=== PATIENT | male | born 1940 | race Caucasian/White ===

== ENCOUNTER → 2016-12-27 | Outpatient (CLI) | payer MEDICARE ==
[~2016-12-27] MED LIST: AMLO1CAP10 PO; GLIM4TAB2 PO; LINA5TAB PO; LORA1TAB PO; METF10002 PO; ROSU10TA PO; TAMS0.4C2 PO; THYROXINE PO
== END | disposition home or self-care (01) ==
LOC: STAR 14:22
PROVIDERS: ATTEND Neurological Surgery
DX: Z01.818 Encounter for other preprocedural examination (principal); R94.31 Abnormal electrocardiogram [ECG] [EKG]; M48.06 Spinal stenosis, lumbar region; R79.1 Abnormal coagulation profile
CPT/HCPCS: 36415; 71020; 85610; 85730; 93005

== ENCOUNTER → 2017-04-02 | Outpatient (CLI) | payer MEDICARE ==
[~2017-04-02] MED LIST changes: +ARIP5TAB13 PO; +HYDR-3307 PO; +LATA2.5D3 EACHEYE; +LEVO150T5 PO; +OXYC-306 PO; +OXYC1TAB7 PO; +TIZA2TAB PO; +TRINTELLIX PO
== END | disposition home or self-care (01) ==
LOC: CVU 14:12
PROVIDERS: ATTEND Internal Medicine Cardiovascular Disease
DX: I34.0 Nonrheumatic mitral (valve) insufficiency (principal); I10 Essential (primary) hypertension; E11.9 Type 2 diabetes mellitus without complications
CPT/HCPCS: 93306

== ENCOUNTER → 2018-01-22 | Outpatient (CLI) | payer MEDICARE ==
[~2018-01-22] MED LIST changes: +CARV6.2512 PO; +CETI10TA18 PO; +FLUT16SP NAS; +LEVO75TA PO; +LISI1TAB3 PO; +LOSA25TA2 PO; +OMEG1CAP6 PO; +OMNIPAQUE 350 MG/ML, 100ML BOTTLE ONE; +SODI44SP NAS
[2018-01-22 15:59] LABS: BASOPHILS # (AUTO) 0.02 x10^3/uL (0-0.1); BASOPHILS % (AUTO) 0 % (0-1); EOSINOPHILS # (AUTO) 0.13 x10^3/uL (0-0.4); EOSINOPHILS % (AUTO) 1 % (1-7); LYMPHOCYTES # (AUTO) 2.72 x10^3/uL (1-3.4); LYMPHOCYTES % (AUTO) 29 % (22-44); MD NO; MEAN CORPUSCULAR HEMOGLOBIN 32.9 pg (27.5-34.5); MEAN CORPUSCULAR HGB CONC 33.7 g/dL (33.2-36.2); MEAN CORPUSCULAR VOLUME 97.4 fL (81-97); MEAN PLATELET VOLUME 6.3 fL (7.4-10.4); MONOCYTES # (AUTO) 0.66 x10^3/uL (0.2-0.8); MONOCYTES % (AUTO) 7 % (2-9); NEUTROPHILS # (AUTO) 5.82 x10^3/uL (1.8-6.8); NEUTROPHILS % (AUTO) 62 % (42-75); PLATELET COUNT 269 x10^3/uL (130-400); RED BLOOD COUNT 4.69 x10^6/uL (4.38-5.82); RED CELL DISTRIBUTION WIDTH 13.8 % (9.4-14.8)
[2018-01-22 16:00] LABS: HCT (SEDRATE) 45.5 % (39.2-51.8)
[2018-01-22 16:13] LABS: ALANINE AMINOTRANSFERASE 20 U/L (12-78); ALBUMIN 3.8 g/dL (3.4-5.0); ANION GAP 7 mmol/L (5-15); C-REACTIVE PROTEIN, QUANT 0.06 mg/dL (0.02-0.49); CALCIUM 8.7 mg/dL (8.5-10.1); CHLORIDE 102 mmol/L (98-107); CREATININE 0.92 mg/dL (0.7-1.3)
[2018-01-22 16:24] LABS: ALKALINE PHOSPHATASE 54 U/L (45-117); BILIRUBIN,TOTAL 0.5 mg/dL (0.2-1.0); TOTAL PROTEIN 7.4 g/dL (6.4-8.2)
== END | disposition home or self-care (01) ==
LOC: RAD 13:11
PROVIDERS: ATTEND Family Medicine
DX: K57.32 Diverticulitis of large intestine without perforation or abscess without bleeding (principal); K57.30 Diverticulosis of large intestine without perforation or abscess without bleeding; K86.89 Other specified diseases of pancreas; R63.4 Abnormal weight loss; N40.0 Benign prostatic hyperplasia without lower urinary tract symptoms; Z90.49 Acquired absence of other specified parts of digestive tract
CPT/HCPCS: 36415; 71260; 74177; 80053; 82150; 83690; 84443; 85025; 85651; 86140; Q9967

== ENCOUNTER 2018-09-23 16:02 | Observation (INO) | payer MEDICARE ==
[~2018-09-23] VITALS: Ht 182.9 cm; Wt 101.7 kg
[~2018-09-23 16:02] MED LIST changes: -OMNIPAQUE 350 MG/ML, 100ML BOTTLE ONE; -ROSU10TA PO; +ROSU10TA2 PO
[2018-09-23] MEDS ORDERED: CEFTRIAXONE PMX 1GM/50ML 50 ML IV ONE (16:30)
[2018-09-23] MEDS ORDERED: AZITHROMYCIN 500 MG in SODIUM CHLORIDE 0.9% 250 ML IV ONE (16:30)
[2018-09-23 16:34] LABS: BASOPHILS # (AUTO) 0.04 x10^3/uL (0-0.1); BASOPHILS % (AUTO) 1 % (0-1); EOSINOPHILS # (AUTO) 0.25 x10^3/uL (0-0.4); EOSINOPHILS % (AUTO) 3 % (1-7); LYMPHOCYTES # (AUTO) 1.99 x10^3/uL (1-3.4); LYMPHOCYTES % (AUTO) 27 % (22-44); MD NO; MEAN CORPUSCULAR HEMOGLOBIN 31.8 pg (27.5-34.5); MEAN CORPUSCULAR VOLUME 96.3 fL (81-97); MEAN PLATELET VOLUME 6.1 fL (7.4-10.4); MONOCYTES % (AUTO) 8 % (2-9); NEUTROPHILS # (AUTO) 4.58 x10^3/uL (1.8-6.8); NEUTROPHILS % (AUTO) 61 % (42-75); PLATELET COUNT 196 x10^3/uL (130-400); RED BLOOD COUNT 4.94 x10^6/uL (4.38-5.82); RED CELL DISTRIBUTION WIDTH 13.4 % (9.4-14.8)
--- NOTE | 2018-09-23 16:39 | NUR ---
FAMILY TO THE BS PT REMAINS LETHARGIC
[2018-09-23 16:42] LABS: ALANINE AMINOTRANSFERASE 13 U/L (12-78); ALBUMIN 3.5 g/dL (3.4-5.0); ANION GAP 5 mmol/L (5-15); CALCIUM 8.7 mg/dL (8.5-10.1); CHLORIDE 103 mmol/L (98-107); CREATININE 1.01 mg/dL (0.7-1.3); INTERNATIONAL NORMALIZED RATIO 1.05 (0.93-1.1)
[2018-09-23 16:47] LABS: ALKALINE PHOSPHATASE 54 U/L (45-117); BILIRUBIN,TOTAL 0.5 mg/dL (0.2-1.0); TROPONIN I < 0.015 ng/mL (0.000-0.045)
--- NOTE | 2018-09-23 17:04 | NUR ---
PT GIVEN URINAL ATTEMPTING UA COLLECTION
[2018-09-23 17:05] LABS: FREE T4 (FREE THYROXINE) 0.96 ng/dL (0.76-1.46)
[2018-09-23] MEDS ORDERED: DEXTROSE 50%, 50ML SYRINGE IVPush PRN (18:00)
[2018-09-23] MEDS ORDERED: ONDANSETRON ODT 4 MG PO PRN (18:00)
[2018-09-23] MEDS ORDERED: GLUCAGON 1 MG IM PRN (18:00)
[2018-09-23] MEDS ORDERED: DEXTROSE 4 GM TAB.CHEW PO PRN (18:00)
[2018-09-23] MEDS ORDERED: hydrALAzine 20 MG/ML, 1ML IVPush PRN (18:00)
[2018-09-23] MEDS ORDERED: ENOXAPARIN 40 MG/0.4 ML ONE (18:11)
[2018-09-23] MEDS ORDERED: CEFTRIAXONE PMX 1GM/50ML 50 ML ONE (18:11)
[2018-09-23] MEDS: ENOXAPARIN 40 MG/0.4 ML SQ SCH (18:21)
--- NOTE | 2018-09-23 18:34 | NUR ---
PT TO CT AT THIS TIME
--- NOTE | 2018-09-23 19:18 | NUR ---
PT RESTING IN BED WITH SIDE RAILS UP. PT ASKED FOR MILKSHAKE, WILL PROVIDE FOOD TRAY. PT IS DROWSY, CALL LIGHT AND URINAL IN PLACE.
--- NOTE | 2018-09-23 19:27 | NUR ---
report to dennis pierre
--- NOTE | 2018-09-23 19:36 | NUR ---
PT ON MONITOR, PT TO GO TO 403-1. IV ROCEPHIN FINISHED, ALERTED RN SALBADOR NEXT IV ANTIVBXTS DUE. ASKED HER TO GET TRAY FOR FOOD, PT LOOKS TO HAVE EATEN ALREADY ALTHOUGH HE IS NOT SAYING HE DID. PT BELONGINGS BAGGED AND WALLET IN BAG. EXPLAINED NOT RESPONSIBLE FOR LOST ITEMS.
[2018-09-23] MEDS: INSULIN LISPRO 100 UNITS/ML, PEN SQ-INSULIN SCH ×2 (20:00→21:00)
[2018-09-23] MEDS: ATORVASTATIN 40 MG TABLET PO SCH (20:52)
[2018-09-23] MEDS: SODIUM CHLORIDE FLUSH 10ML SYR IVF SCH (20:52)
[2018-09-23 21:00] VITALS: BP 136/84
[2018-09-23 23:13] LABS: MICROSCOPIC NOT IND
[2018-09-23 23:19] LABS: CULTURE INDICATED? NO
[2018-09-23 23:32] LABS: AMPHETAMINE SCREEN, URINE Negative (Negative); BARBITURATE SCREEN, URINE Negative (Negative); BENZODIAZEPINE SCREEN, URINE Positive (Negative); CANNABINOID SCREEN, URINE Negative (Negative); COCAINE SCREEN, URINE Negative (Negative); METHADONE SCREEN, URINE Negative (Negative); OPIATE SCREEN, URINE Positive (Negative)
[2018-09-24 01:23] VITALS: BP 112/72
[2018-09-24] MEDS ORDERED: LEVOTHYROXINE 112 MCG TABLET PO SCH (06:00)
[2018-09-24 06:38] LABS: BASOPHILS # (AUTO) 0.03 x10^3/uL (0-0.1); BASOPHILS % (AUTO) 0 % (0-1); EOSINOPHILS # (AUTO) 0.22 x10^3/uL (0-0.4); EOSINOPHILS % (AUTO) 4 % (1-7); LYMPHOCYTES # (AUTO) 1.67 x10^3/uL (1-3.4); LYMPHOCYTES % (AUTO) 27 % (22-44); MD NO; MEAN CORPUSCULAR HEMOGLOBIN 31.8 pg (27.5-34.5); MEAN CORPUSCULAR HGB CONC 33.6 g/dL (33.2-36.2); MEAN CORPUSCULAR VOLUME 94.8 fL (81-97); MEAN PLATELET VOLUME 6.6 fL (7.4-10.4); MONOCYTES # (AUTO) 0.46 x10^3/uL (0.2-0.8); MONOCYTES % (AUTO) 7 % (2-9); NEUTROPHILS % (AUTO) 62 % (42-75); PLATELET COUNT 175 x10^3/uL (130-400); RED BLOOD COUNT 4.77 x10^6/uL (4.38-5.82); RED CELL DISTRIBUTION WIDTH 13.5 % (9.4-14.8)
[2018-09-24 06:43] LABS: ANION GAP 6 mmol/L (5-15); CALCIUM 8.5 mg/dL (8.5-10.1); CHLORIDE 105 mmol/L (98-107)
[2018-09-24] MEDS: INSULIN LISPRO 100 UNITS/ML, PEN SQ-INSULIN SCH ×4 (07:00→21:49)
[2018-09-24 07:51] VITALS: BP 122/65
[2018-09-24] MEDS: SODIUM CHLORIDE FLUSH 10ML SYR IVF SCH ×2 (09:00→21:12)
[2018-09-24] MEDS: LOSARTAN 25MG TABLET PO SCH (09:15)
[2018-09-24] MEDS: metFORMIN XR 500 MG TAB.ER.24H PO SCH (09:15)
[2018-09-24] MEDS: TAMSULOSIN 0.4 MG CAP.ER.24H PO SCH (09:15)
[2018-09-24] MEDS: CEFTRIAXONE PMX 1GM/50ML 50 ML IV SCH (10:34)
[2018-09-24] MEDS: AZITHROMYCIN 500 MG in SODIUM CHLORIDE 0.9% 250 ML IV SCH (11:16)
[2018-09-24 12:50] VITALS: BP 115/66
[2018-09-24] MEDS: LIDODERM 5% PATCH TD SCH (15:34)
[2018-09-24] MEDS: IBUPROFEN 600 MG TABLET PO PRN (15:34)
[2018-09-24 16:40] VITALS: BP 140/79
[2018-09-24] MEDS: ENOXAPARIN 40 MG/0.4 ML SQ SCH (16:45)
[2018-09-24 18:59] VITALS: BP 142/78
[2018-09-24] MEDS: ATORVASTATIN 40 MG TABLET PO SCH (21:10)
[2018-09-24] MEDS: ACETAMINOPHEN 325 MG TABLET PO PRN (21:10)
[2018-09-25 02:11] VITALS: BP 146/88
[2018-09-25] MEDS: LIDODERM REMOVE PATCH NOTE XX SCH (02:40)
[2018-09-25] MEDS: LEVOTHYROXINE 150 MCG TABLET PO SCH (05:36)
[2018-09-25] MEDS: INSULIN LISPRO 100 UNITS/ML, PEN SQ-INSULIN SCH ×4 (07:00→20:26)
[2018-09-25 07:10] VITALS: BP 162/92
[2018-09-25 08:50] LABS: BASOPHILS # (AUTO) 0.03 x10^3/uL (0-0.1); BASOPHILS % (AUTO) 1 % (0-1); EOSINOPHILS # (AUTO) 0.19 x10^3/uL (0-0.4); EOSINOPHILS % (AUTO) 3 % (1-7); LYMPHOCYTES % (AUTO) 30 % (22-44); MD NO; MEAN CORPUSCULAR HEMOGLOBIN 31.9 pg (27.5-34.5); MEAN CORPUSCULAR HGB CONC 33.5 g/dL (33.2-36.2); MEAN PLATELET VOLUME 6.3 fL (7.4-10.4); MONOCYTES # (AUTO) 0.42 x10^3/uL (0.2-0.8); MONOCYTES % (AUTO) 7 % (2-9); NEUTROPHILS # (AUTO) 3.58 x10^3/uL (1.8-6.8); NEUTROPHILS % (AUTO) 59 % (42-75); PLATELET COUNT 194 x10^3/uL (130-400); RED BLOOD COUNT 4.75 x10^6/uL (4.38-5.82); RED CELL DISTRIBUTION WIDTH 13.3 % (9.4-14.8)
[2018-09-25] MEDS: TAMSULOSIN 0.4 MG CAP.ER.24H PO SCH (09:03)
[2018-09-25] MEDS: LOSARTAN 25MG TABLET PO SCH (09:03)
[2018-09-25] MEDS: metFORMIN XR 500 MG TAB.ER.24H PO SCH (09:03)
[2018-09-25] MEDS: IBUPROFEN 600 MG TABLET PO PRN ×2 (09:03→23:39)
[2018-09-25] MEDS: SODIUM CHLORIDE FLUSH 10ML SYR IVF SCH ×2 (09:04→20:26)
[2018-09-25] MEDS: CEFTRIAXONE PMX 1GM/50ML 50 ML IV SCH (09:04)
[2018-09-25] MEDS: AZITHROMYCIN 500 MG in SODIUM CHLORIDE 0.9% 250 ML IV SCH (09:52)
[2018-09-25 13:30] VITALS: BP 133/79
[2018-09-25] MEDS: LIDODERM 5% PATCH TD SCH (15:31)
[2018-09-25] MEDS ORDERED: GABA300C10 PO (16:12)
[2018-09-25] MEDS ORDERED: OXYC-306 PO (16:12)
[2018-09-25] MEDS ORDERED: DIAZ5TAB4 PO (16:12)
[2018-09-25] MEDS: ENOXAPARIN 40 MG/0.4 ML SQ SCH (17:16)
[2018-09-25 18:34] VITALS: BP 151/78
[2018-09-25] MEDS: ACETAMINOPHEN 325 MG TABLET PO PRN (20:25)
[2018-09-25] MEDS: ATORVASTATIN 40 MG TABLET PO SCH (20:25)
[2018-09-26 00:49] VITALS: BP 123/67
[2018-09-26] MEDS: LIDODERM REMOVE PATCH NOTE XX SCH (03:00)
[2018-09-26] MEDS: ACETAMINOPHEN 325 MG TABLET PO PRN (03:59)
[2018-09-26] MEDS: LEVOTHYROXINE 150 MCG TABLET PO SCH (04:00)
[2018-09-26 06:49] VITALS: BP 141/68
[2018-09-26] MEDS: SODIUM CHLORIDE FLUSH 10ML SYR IVF SCH (09:00)
[2018-09-26] MEDS: TAMSULOSIN 0.4 MG CAP.ER.24H PO SCH (09:48)
[2018-09-26] MEDS: LOSARTAN 25MG TABLET PO SCH (09:48)
[2018-09-26] MEDS: metFORMIN XR 500 MG TAB.ER.24H PO SCH (09:49)
[2018-09-26] MEDS: INSULIN LISPRO 100 UNITS/ML, PEN SQ-INSULIN SCH ×2 (09:49→12:05)
[2018-09-26] MEDS: CEFTRIAXONE PMX 1GM/50ML 50 ML IV SCH (10:06)
[2018-09-26] MEDS: AZITHROMYCIN 500 MG in SODIUM CHLORIDE 0.9% 250 ML IV SCH (10:55)
[2018-09-26] MEDS: IBUPROFEN 600 MG TABLET PO PRN (12:05)
== END 2018-09-26 14:35 | disposition home or self-care (01) ==
LOC: ED 17:20 → EDIP 17:43 → ED 19:14 → 4WST 19:55 → DCLOUNGE 09-26 14:25
PROVIDERS: ADMIT Internal Medicine; ATTEND Internal Medicine
DX: R41.82 Altered mental status, unspecified (principal); E03.9 Hypothyroidism, unspecified; E11.9 Type 2 diabetes mellitus without complications; E78.5 Hyperlipidemia, unspecified; G89.4 Chronic pain syndrome; G93.41 Metabolic encephalopathy; I10 Essential (primary) hypertension; J44.1 Chronic obstructive pulmonary disease with (acute) exacerbation; J96.90 Respiratory failure, unspecified, unspecified whether with hypoxia or hypercapnia; Z79.891 Long term (current) use of opiate analgesic
CPT/HCPCS: 36415; 70450; 70551; 71045; 80048; 80053; 80307; 81003; 82306; 82607; 82962; 83605; 83880; 84145; 84439; 84443; 84484; 85025; 85610; 85730; 87040; 92522; 93005; 96365; 96366; 96367; 96372; 97162; 97166; 99284; G0378; J0456; J0696; J1650; J1815; J7050

== ENCOUNTER 2021-03-14 13:52 | Outpatient (CLI) | payer MEDICARE ==
[~2021-03-14 13:52] MED LIST changes: -AMLO1CAP10 PO; +AMLO1CAP11 PO; +DIAZ5TAB4 PO; -FLUT16SP NAS; +FLUT16SP24 NAS; +GABA300C10 PO; -GLIM4TAB2 PO; +GLIM4TAB8 PO; +HYDR-3248 PO; -HYDR-3307 PO; -LATA2.5D3 EACHEYE; +LATA2.5D4 EACHEYE; +LISI1TAB23 PO; -LISI1TAB3 PO; -OXYC-306 PO; +OXYC1TAB16 PO; +TIZA-106 PO; -TIZA2TAB PO
== END 2021-03-14 23:59 | disposition home or self-care (01) ==
LOC: CVU 13:52
PROVIDERS: ATTEND Internal Medicine Cardiovascular Disease
DX: I10 Essential (primary) hypertension (principal)
CPT/HCPCS: 93306